=== PATIENT | male | born 1960 | race African-American/Black ===

== ENCOUNTER 2023-08-19 07:42 | Outpatient (CLI) | payer MEDICARE, MEDICAID, SELFPAY ==
--- NOTE | ~2023-08-19 | MR_ITS ---
EXAMINATION: MR knee LT wo con DATE: 08/19/2023 08:38 INDICATION: Left knee pain TECHNIQUE: Magnetic resonance imaging (MRI) of the left knee was performed without intravenous contra st. Sequences included coronal PD-weighted FSE, coronal PD-weighted FS FSE, sagittal T2-weighted FSE , sagittal PD-weighted FS FSE and axial PD weighted fat saturated FSE. COMPARISON: None. FINDINGS: Medial compartment: Medial meniscus is normal. There is partial thickness chondral ulceration along the anterior to centr al weightbearing medial femoral condyle. There is a shallow concavity with mild depression of a small portion of the articular cortex at the anterior weightbearing medial femoral condyle with underlying subarticular edema and cystlike changes suggesting recent impaction or insufficiency fracture or a c ollapsed osteochondral lesion. Articular cartilage along the medial tibial plateau appears normal. Lateral compartment: Lateral meniscus is normal. Shallow chondral ulceration along the lateral tibial plateau and anterior weightbearing lateral femoral condyle. Patellofemoral compartment: Full/near full-thickness chondral ulceration along a significant portion of the lateral patellar face t. There is minimal cortical irregularity and tiny underlying subarticular cystlike change along the lateral facet. Additional partial thickness chondral ulceration and fissuring along the medial facet and apical ridge. Small partial-thickness chondral fissuring without degenerative subchondral changes at the central aspect of the trochlear groove. Ligaments and tendons: Anterior and posterior cruciate ligaments are normal. The medial collateral ligament and fibular juhi ateral ligament complex are normal. Mild tendinopathy with enthesopathic ossicles at the patellar ins ertions of the distal quadriceps tendon and proximal patellar tendon. The visualized medial and later al hamstring tendons as well as the iliotibial band are normal. Fluid: Physiologic amount of fluid in the joint space. No loose osteochondral bodies identified. Osseous/other: Increased tibial tubercle trochlear groove distance measuring 20 mm . Alignment is otherwise normal. No pathologic marrow replacing process. Additional mild osteoarthritis at the proximal tibiofibular a rticulation with subarticular edema-like signal change along the tibial side of the joint. IMPRESSION: 1. Shallow concavity along the articular cortex at the anterior weightbearing medial femoral condyle with underlying cystlike and edema-like signal change which could represent impaction fracture, insuf ficiency fracture or most likely collapsed osteochondral lesion. 2. Mild osteoarthritis at the proximal tibiofibular and all 3 compartments of the left knee. This mos t severe at the lateral side of the patellofemoral articulation with extensive full/near full-thickne ss chondral ulceration along the lateral patellar facet. This could be related to patellar maltrackin g with increased tibial tubercle to trochlear groove distance of 20 mm. Reviewed, dictated and finalized at location A. IMPRESSION: 1. Shallow concavity along the articular cortex at the anterior weightbearing m edial femoral condyle with underlying cystlike and edema-like signal change whi ch could represent impaction fracture, insufficiency fracture or most likely co llapsed osteochondral lesion. 2. Mild osteoarthritis at the proximal tibiofibular and all 3 compartments of t he left knee. This most severe at the lateral side of the patellofemoral articu lation with extensive full/near full-thickness chondral ulceration along the la teral patellar facet. This could be related to patellar maltracking with increa sed tibial tubercle to trochlear groove distance of 20 mm.
== END 2023-08-19 07:43 | disposition home or self-care (01) ==
LOC: ANHIMG 07:49
PROVIDERS: Visit Provider Orthopaedic Surgery
DX: M25.562 Pain in left knee (principal); M17.12 Unilateral primary osteoarthritis, left knee
CPT/HCPCS: 73721